=== PATIENT | female | born 1970 | race African-American/Black ===

== ENCOUNTER 2018-02-23 03:16 | Emergency (ER) | payer BC ==
[~2018-02-23] VITALS: Ht 147.3 cm; Wt 54.4 kg
--- NOTE | ~2018-02-23 | EKG ---
[address] [address] ELECTROCARDIOGRAM REPORT Name: NICOLAS ALBRIGHT Room #: [facility] SYSTEM[facility]ena[facility] [id number] Admission: 02/23/18 Attend Phys: Discharge: 02/23/18 Date of : 70 Report #: [id number] THIS REPORT FOR: //name// [facility] ED Test Date: 2018-02-23 Test Time: 03:24:32 Pat Name: NICOLAS ALBRIGHT Department: Room: Gender: F Clinical Data Manager: PEE : 1970 Requested By: Rk Pereira Order Number: [id number] MD: Alexandre Shen Measurements Intervals [place] Rate: 151 P: 0 NH: 73 QRS: -24 QRSD: 103 T: 56 QT: 312 QTc: 495 Interpretive Statements SVT Poor R wave progression No previous ECG available for comparison Electronically Signed On 02-23-2018 8:27:02 ERP PROGRAMMER by Alexandre Shen [email or web address] <ELECTRONICALLY SIGNED> By: Alexandre Shen MD, [facility] 02/23/18 0827 0324 [id number] Alexandre Shen MD, FACC /EPI
[2018-02-23 03:49] LABS: ABSOLUTE NEUTROPHILS 3.8 thou/uL (1.4-8.2); BASOPHILS 1.2 % (0.0-2.0); EOSINOPHILS 0.3 % (0.0-3.0); HEMOGLOBIN 13.9 gm/dL (12.0-15.0); MCH 30.8 pg (26.0-34.0); MCV 90.5 fL (80.0-100.0); PLATELET COUNT 188 thou/uL (150-400); POLYS 57.5 % (36.0-66.0); RBC 4.53 mil/uL (4.20-5.00); RDW 12.9 % (10.5-14.5); WBC 6.6 thou/uL (4.0-11.0)
[2018-02-23 04:07] LABS: LARGE PLATELETS RARE
[2018-02-23 04:08] LABS: OVALOCYTES OCCASIONAL; SCHISTOCYTES OCCASIONAL
[2018-02-23 04:09] LABS: TEARDROPS OCCASIONAL
[2018-02-23 04:28] LABS: ANION GAP 10 mmol/L (7-16); BUN 12 mg/dL (7-18); CALCIUM 9.7 mg/dL (8.5-10.1); CHLORIDE 104 mmol/L (98-107); CO2 26 mmol/L (21-32); CREATININE 0.9 mg/dL (0.6-1.0); GLUCOSE 135 mg/dL (74-106); POTASSIUM 3.9 mmol/L (3.5-5.1); SODIUM 140 mmol/L (136-145)
[2018-02-23 04:33] LABS: POLYCHROMASIA OCCASIONAL
[2018-02-23 04:36] LABS: TROPONIN-I <0.06 ng/mL (<0.06)
[2018-02-23 05:55] LABS: URINE BILIRUBIN NEGATIVE (Negative); URINE BLOOD NEGATIVE (Negative); URINE CLARITY CLEAR; URINE COLOR YELLOW; URINE GLUCOSE-RANDOM* NEGATIVE (Negative); URINE KETONES NEGATIVE (Negative); URINE LEUKOCYTES-REFLEX NEGATIVE (Negative); URINE NITRITE-REFLEX NEGATIVE (Negative); URINE PROTEIN (DIPSTICK) NEGATIVE (Negative); URINE SPECIFIC GRAVITY >= 1.030 (1.005-1.035); URINE UROBILINOGEN 0.2 E.U./dl (0.2-1.0)
[2018-02-23 06:01] LABS: AMP/METHAMP Negative (Negative); BARBITURATES Negative (Negative); BENZODIAZEPINES Negative (Negative); COCAINE Negative (Negative); METHADONE Negative (Negative); OPIATES POSITIVE (Negative); PCP Negative (Negative)
[2018-02-23 07:43] VITALS: BP 110/73
== END 2018-02-23 07:44 | disposition home or self-care (01) ==
LOC: ER 03:16
PROVIDERS: Emergency Medicine
DX: I47.1 Supraventricular tachycardia (principal); E05.80 Other thyrotoxicosis without thyrotoxic crisis or storm